=== PATIENT | male | born 1955 | race Asian ===

== ENCOUNTER 2019-10-10 11:58 | Emergency (ER) | payer MEDICARE, OTHER ==
[~2019-10-10] VITALS: Ht 172.7 cm; Wt 88.6 kg
[2019-10-10] MEDS ORDERED: METO25XL PO (12:06)
[2019-10-10] MEDS ORDERED: IBUP-1689 PO (12:06)
[2019-10-10] MEDS ORDERED: TELM20 PO (12:06)
[2019-10-10 12:34] VITALS: BP 146/102
== END 2019-10-10 13:02 | disposition home or self-care (01) ==
LOC: EMS 12:07
DX: R19.7 Diarrhea, unspecified (principal); I10 Essential (primary) hypertension; Z03.818 Encounter for observation for suspected exposure to other biological agents ruled out; Z88.1 Allergy status to other antibiotic agents
CPT/HCPCS: 99283; U0003